=== PATIENT | male | born 2005 | race Caucasian/White ===

== ENCOUNTER 2024-05-16 06:26 | Day surgery (SDC) | payer OTHER, SELFPAY ==
[2024-05-16] VITALS (7 sets, daily range): BP systolic 110–139; BP diastolic 60–76
[2024-05-16] MEDS: TYLENOL 1000 MG PO (12:46)
[2024-05-16] MEDS: NORMOSOL-R 1000 IV (12:47)
== END 2024-05-16 15:59 | disposition home or self-care (01) ==
LOC: SDS 06:26
PROVIDERS: ATTENDING PHYSICIAN Otolaryngology
DX: J35.1 Hypertrophy of tonsils (principal); J34.3 Hypertrophy of nasal turbinates
CPT/HCPCS: 42821; 30802; 88304

== ENCOUNTER → 2024-05-23 10:23 | Day surgery (SDC) | payer OTHER, SELFPAY ==
[2024-05-23 07:50] VITALS: BP 136/80
--- NOTE | 2024-05-23 08:02 | EDRN ---
ENT MD in room w/ pt at this time.
[2024-05-23] MEDS: NSS 1000 IV (08:10)
[2024-05-23 08:15] VITALS: BMI 29.6
[2024-05-23 10:20] VITALS: BP 136/80
== END ==
LOC: EMR 07:42 → PACU 10:23
PROVIDERS: ATTENDING PHYSICIAN Otolaryngology; FAMILY PHYSICIAN Student in an Organized Health Care Education/Training Program
DX: J95.830 Postprocedural hemorrhage of a respiratory system organ or structure following a respiratory system procedure (principal); Z98.890 Other specified postprocedural states
CPT/HCPCS: 42962; 99283

== ENCOUNTER → 2024-11-17 10:02 | Emergency (ER) | payer BC, SELFPAY ==
[2024-11-17 10:35] VITALS: BP 135/74
--- NOTE | 2024-11-17 12:56 | ED.GENMED ---
History of Present Illness
General
Chief Complaint: Nose Bleed
Source: patient and family
Exam Limitations: none
Time Seen by Provider: 11/17/24 12:17
Nursing documentation reviewed up to this point in time: agreed with
History of Present Illness
History of Present Illness:
19-year-old male presenting to the emergency department with concerns of intermittent blood in his snot over the past few days. Had a few episodes last night as well. Has had upper respiratory symptoms over the past few weeks and some sinus
pressure over the past few weeks. Did additionally have adenoids and tonsils removed 6 months ago. Had post tonsillectomy bleeding as well.
Review of Systems
Review of Systems
Allergies reviewed?: Yes
All Other Systems: ROS reviewed and negative except as documented in HPI and ROS
Phy Exam
Physical Exam
Physical Exam:
GENERAL: Alert , in no apparent distress
EYE: pupils equal and reactive
NECK: Supple, no significant adenopathy.
ENT: Normal appearing nasopharynx no bleeding o/p clr, mmm.
CARDIAC: Regular rate and rhythm .
LUNGS: Clear breath sounds bilaterally, no acute respiratory distress, no wheezes/rales/rhonchi
ABDOMEN: Soft, without focal tenderness, no r/g, no cvat
NEUROLOGICAL: Alert and oriented, no focal neuro deficits
SKIN: Warm and dry, skin intact.
MUSCULOSKELETAL: No edema, well perfused.
PSYCH: Normal and appropriate interaction.
Course
Vital Signs
Initial and Last Documented VS:
Initial Vital Signs
Temp Pulse Resp BP Pulse Ox
98.0 F 60 18 135/74 99
11/17/24 10:35 11/17/24 10:35 11/17/24 10:35 11/17/24 10:35 11/17/24 10:35
Last Documented Vital Signs
Temp Pulse Resp BP Pulse Ox
98.0 F 60 18 135/74 99
11/17/24 10:35 11/17/24 10:35 11/17/24 10:35 11/17/24 10:35 11/17/24 10:35
MDM/Problems Addressed
MDM/Problems Addressed:
19-year-old male presenting to the emergency department with concerns of intermittent clot formation in his nasal secretions over the past day or so has had ongoing congestion for multiple weeks. Did have a recent procedure 6 months ago. No active
bleeding here patient well-appearing normal vital signs. Case was discussed with ENT considering relatively recent tonsillectomy and adenoidectomy. They claim that he can follow-up as an outpatient otherwise recommended saline. Otherwise the
mother was concerned of ongoing sinus pressure over the past few weeks. Claims that he may have had some intermittent fevers and chills concerning this plan to start antibiotics for possible chronic sinusitis.
*Critical Care Note
Total Time (30-74mins, 75-104mins- exclusive of procedures): Not Applicable
ED Attending Note
-
Portions of this chart may have been created with voice recognition software.� Occasional wrong word or��sound alike� substitutions may have occurred due to the inherent limitations of voice recognition software.
Discharge Plan
Departure
Patient Disposition: Home (Routine Discharge)
Date of Disposition: 11/17/24
Time of Disposition: 13:02
Patient with high blood pressure during this ER visit?: No
Condition: Good
Covid-19: Not Applicable
Discharge Problem:
Acute sinusitis, Epistaxis
Instructions: Sinusitis in adults, Nosebleeds (DC)
Prescriptions:
New
amoxicillin-pot clavulanate 875-125 mg tablet
1 tab PO BID 7 Days Qty: 14 0RF
No Action
sertraline 50 mg Tablet
50 mg PO HS
prednisolone sodium phosphate [prednisolone sodium phosphate] 15 mg/5 mL (3 mg/mL) solution
10 ml PO DAILY 3 Days Qty: 30 0RF
Rx Instructions:
Take Prelone starting tomorrow, once daily x 3 days
ondansetron [ondansetron] 4 mg tablet,disintegrating
4 mg PO Q8H PRN (Reason: Nausea and Vomiting) 10 Days Qty: 15 0RF
oxycodone 5 mg/5 mL solution
5 mg PO Q4H PRN (Reason: Pain) Qty: 250 0RF
Referrals:
Juanito Berger MD [Family Provider] -
Daljit Yu MD [Active] - Follow up in 5-7 days
Activity Restrictions/Additional Instructions:
You came to the emergency department today with concerns of some blood in your nasal secretions. This was discussed with ENT who can follow you up this week. Otherwise please take Augmentin twice daily for the neck 7 days return to the emergency
department any worsening, new or concerning symptoms.
Interventions
Interventions:
*Risk Screen - Suicide Last Done: 11/17/24 10:35
*General Assessment Last Done: 11/17/24 10:35
*Neglect/Abuse Screening Last Done: 11/17/24 10:35
*ED COVID-19 Vaccine History Last Done: 11/17/24 10:35
Discharge Date and Time
Print Language: ALBANIAN
== END | disposition home or self-care (01) ==
LOC: EMR 10:02
PROVIDERS: EMERGENCY PHYSICIAN Emergency Medicine; FAMILY PHYSICIAN Pediatrics
DX: J01.90 Acute sinusitis, unspecified (principal); R04.0 Epistaxis
CPT/HCPCS: 99282